=== PATIENT | female | born 1945 | race Caucasian/White ===

== ENCOUNTER → 2016-07-16 16:59 | Outpatient (CLI) | payer MEDICARE ==
[2015-08-28 12:57] VITALS: BMI 26.9
[~2016-07-16 16:59] MED LIST: BENICAR20 MG PO; HYDROCODONE-APA1 TAB PO; NORVASC2.5 MG PO
== END | disposition home or self-care (01) ==
LOC: D.MAMMO 06-24 09:30
DX: R92.8 Other abnormal and inconclusive findings on diagnostic imaging of breast (principal)

== ENCOUNTER → 2019-05-03 08:42 | Outpatient (CLI) | payer MEDICARE ==
[2015-08-28 12:57] VITALS: BMI 26.9
== END | disposition home or self-care (01) ==
LOC: D.HCCECHO 08:42 → D.HCCARDIO 09:00 → D.HCCECHO 09:00
PROVIDERS: ATTEND Internal Medicine Cardiovascular Disease
DX: I34.0 Nonrheumatic mitral (valve) insufficiency (principal)

== ENCOUNTER → 2020-02-26 10:57 | Day surgery (SDC) | payer MEDICARE ==
[2015-08-28 12:57] VITALS: BMI 26.9
[~2020-02-26 10:57] MED LIST changes: +BETAPACE 80 MG80 MG PO; +ELIQUIS2.5 MG PO; +HCTZ25 MG PO; +KLOR-CON 1010 MEQ PO; +NORVASC5 MG PO
== END | disposition home or self-care (01) ==
LOC: D.CATH 10:57
PROVIDERS: ATTEND Internal Medicine Cardiovascular Disease
DX: I48.91 Unspecified atrial fibrillation (principal)